=== PATIENT | male | born 1970 | race Two or more races ===

== ENCOUNTER 2017-02-19 14:01 | Emergency (ER) | payer MEDICAID ==
[~2017-02-19] VITALS: Ht 182.9 cm; Wt 90.7 kg
[2017-02-19 14:57] VITALS: BP 127/55
[2017-02-19] MEDS ORDERED: methylPREDNISolone SOD SUCC 125 MG/2 ML VL IV ONE (15:30)
== END 2017-02-19 15:57 | disposition home or self-care (01) ==
LOC: EDBD 14:01 → ER 14:01
DX: L25.8 Unspecified contact dermatitis due to other agents (principal); T39.395A Adverse effect of other nonsteroidal anti-inflammatory drugs [NSAID], initial encounter; Y92.89 Other specified places as the place of occurrence of the external cause
CPT/HCPCS: 96374; 99284; J2930

== ENCOUNTER 2017-10-05 04:14 | Emergency (ER) | payer MEDICAID, OTHER ==
[~2017-10-05] VITALS: Ht 180.3 cm; Wt 135.2 kg
[2017-10-05 10:09] VITALS: BP 125/77
[2017-10-05] MEDS ORDERED: KETOROLAC TROMETH 60MG/2ML VIAL IM ONE (11:00)
== END 2017-10-05 11:06 | disposition home or self-care (01) ==
LOC: ER 04:27
DX: S16.1XXA Strain of muscle, fascia and tendon at neck level, initial encounter (principal); F17.210 Nicotine dependence, cigarettes, uncomplicated; Z88.8 Allergy status to other drugs, medicaments and biological substances; X58.XXXA Exposure to other specified factors, initial encounter; Y93.89 Activity, other specified; Y99.8 Other external cause status; Y92.89 Other specified places as the place of occurrence of the external cause
CPT/HCPCS: 72125

== ENCOUNTER 2021-08-08 18:14 | Emergency (ER) | payer MEDICAID ==
[~2021-08-08] VITALS: Ht 182.9 cm; Wt 90.3 kg
[2021-08-08 18:22] VITALS: BP 115/74
[2021-08-08] MEDS ORDERED: FLUORESCEIN SOD OPTH TEST STRIP ONE (21:16)
[2021-08-08] MEDS ORDERED: TETRACAINE HCL 0.5% OPTH(EYE) SOLN 4ML ONE (21:16)
== END 2021-08-09 02:14 | disposition left against medical advice (07) ==
LOC: ER 18:14
DX: S05.8X1A Other injuries of right eye and orbit, initial encounter (principal); T15.01XA Foreign body in cornea, right eye, initial encounter; E78.5 Hyperlipidemia, unspecified; F17.210 Nicotine dependence, cigarettes, uncomplicated; Z88.8 Allergy status to other drugs, medicaments and biological substances; X58.XXXA Exposure to other specified factors, initial encounter; Y93.89 Activity, other specified; Y92.89 Other specified places as the place of occurrence of the external cause; Y99.8 Other external cause status

== ENCOUNTER 2022-10-25 09:32 | Inpatient (IN) | payer MEDICAID ==
[~2022-10-25] VITALS: Ht 182.9 cm; Wt 92.7 kg
[2022-10-25] MEDS ORDERED: KETOROLAC TROMETH 30 MG/ML 1ML VIAL IV ONE (10:00)
[2022-10-25] MEDS ORDERED: SODIUM CHLORIDE 0.9% 1,000 ML IV ONE ×2 (10:00)
[2022-10-25 10:24] LABS: Basophils # (auto) 0.1 10 ^3/uL (0-0.2); Basophils % (auto) 0.6 % (0.0-2.0); Eosinophils # (auto) 0.2 10 ^3/uL (0-0.8); Eosinophils % (auto) 2.3 % (0.0-7.0); Hematocrit 40.2 % (41.0-53.0); Hemoglobin 13.6 g/dL (13.5-17.5); Lymphocytes # (auto) 2.1 10 ^3/uL (0.4-5.4); Mean Corpuscular Hemoglobin 30.5 pg (28.0-32.0); Mean Corpuscular Hgb Conc. 33.8 g/dL (32.0-36.0); Mean Corpuscular Volume 90.1 fL (80.0-100.0); Monocytes # (auto) 0.7 10 ^3/uL (0-1.3); Monocytes % (auto) 7.8 % (0.0-12.0); Neutrophils # (auto) 6.4 10 ^3/uL (1.6-8.6); Neutrophils % (auto) 67.3 % (37.0-80.0); Nucleated Red Blood Cells % 0.1 %; Red Blood Cells 4.46 10^6/uL (4.5-5.90); Red Cell Distribution Width 13.4 % (11.8-14.3); White Blood Cell 9.5 10^3/uL (4.4-10.8)
[2022-10-25 10:58] LABS: Alanine Aminotransferase 28 U/L (7-40); Albumin 4.4 g/dL (3.2-4.8); Alkaline Phosphatase 66 U/L (46-116); Anion Gap 6.2 (5-15); Aspartate Aminotransferase 11 U/L (13-40); BUN/Creatinine Ratio 8.8 (10.0-20.0); Bilirubin, Total 0.6 mg/dL (0.2-1.0); Blood Urea Nitrogen 13 mg/dL (9-23); Calcium 8.9 mg/dL (8.5-10.1); Carbon Dioxide 23.8 mmol/L (20-30); Chloride 107 mmol/L (98-107); Glucose 211 mg/dL (74-106); Lipase 54 U/L (12-53); Potassium 4.2 mmol/L (3.5-5.1); Sodium 137 mmol/L (136-145); Total Protein 6.9 g/dL (5.7-8.2)
[2022-10-25 12:39] LABS: Urine Bacteria NONE SEEN /hpf (None Seen); Urine Blood 3+ /uL (Negative); Urine Clarity HAZY (Clear); Urine Color Brown (Yellow); Urine Mucus FEW (None Seen); Urine Protein, UAD 1+ (Negative); Urine Specific Gravity 1.025 (1.001-1.035); Urine WBC 83 /hpf (0 - 3)
[2022-10-25] MEDS ORDERED: ACETAMINOPHEN 325 MG TAB PO PRN (13:00)
[2022-10-25] MEDS ORDERED: KETOROLAC TROMETH 30 MG/ML 1ML VIAL IV PRN ×2 (13:00→14:45)
[2022-10-25] MEDS ORDERED: cefTRIAXone 1GM/50ML D5W 50 ML IV ONE (13:00)
[2022-10-25] MEDS ORDERED: HYDROcodone-ACET 5/325MG TAB PO PRN (13:00)
[2022-10-25] MEDS ORDERED: ATOR10TA52 PO (13:18)
[2022-10-25] MEDS ORDERED: SERT-206 PO (13:18)
[2022-10-25] MEDS ORDERED: IBUP1TAB5 PO (13:18)
[2022-10-25] MEDS ORDERED: AMOX500C2 PO (13:18)
[2022-10-25] MEDS ORDERED: FLUO20CA90 PO (13:18)
[2022-10-25] MEDS ORDERED: SERT-160 PO (13:18)
[2022-10-25] MEDS ORDERED: IBUPROFEN 600 MG TAB PO PRN (13:30)
[2022-10-25] MEDS: SODIUM CHLORIDE 0.9% 1,000 ML IV SCH ×2 (13:59→23:04)
[2022-10-25 23:02] VITALS: BP 106/63; PULSE 64; RESP 18; TEMP 97.9; O2SAT 98
[2022-10-26 05:00] VITALS: BP 104/65; PULSE 63; RESP 18; TEMP 97.7; O2SAT 95
[2022-10-26 06:10] LABS: Alanine Aminotransferase 25 U/L (7-40); Albumin 3.9 g/dL (3.2-4.8); Alkaline Phosphatase 64 U/L (46-116); Anion Gap 4.1 (5-15); Aspartate Aminotransferase 11 U/L (13-40); Basophils # (auto) 0 10 ^3/uL (0-0.2); Basophils % (auto) 0.6 % (0.0-2.0); Bilirubin, Total 0.4 mg/dL (0.2-1.0); Blood Urea Nitrogen 12 mg/dL (9-23); Calcium 8.4 mg/dL (8.7-10.4); Carbon Dioxide 25.9 mmol/L (20-30); Chloride 111 mmol/L (98-107); Eosinophils # (auto) 0.3 10 ^3/uL (0-0.8); Eosinophils % (auto) 4.5 % (0.0-7.0); Glucose 143 mg/dL (74-106); Hemoglobin 12.3 g/dL (13.5-17.5); Lymphocytes # (auto) 2.2 10 ^3/uL (0.4-5.4); Lymphocytes % (auto) 31.6 % (10.0-50.0); Mean Corpuscular Hemoglobin 30.9 pg (28.0-32.0); Mean Corpuscular Hgb Conc. 34.3 g/dL (32.0-36.0); Mean Corpuscular Volume 90.3 fL (80.0-100.0); Monocytes # (auto) 0.7 10 ^3/uL (0-1.3); Monocytes % (auto) 9.5 % (0.0-12.0); Neutrophils # (auto) 3.7 10 ^3/uL (1.6-8.6); Neutrophils % (auto) 53.8 % (37.0-80.0); Nucleated Red Blood Cells % 0.1 %; Potassium 4.2 mmol/L (3.5-5.1); Red Blood Cells 3.99 10^6/uL (4.5-5.90); Red Cell Distribution Width 13.5 % (11.8-14.3); Sodium 141 mmol/L (136-145); White Blood Cell 6.9 10^3/uL (4.4-10.8)
[2022-10-26 08:00] VITALS: BP 104/70; PULSE 50; PULSE 52; RESP 18; RESP 20; TEMP 97.7; O2SAT 97
[2022-10-26 08:17] LABS: BUN/Creatinine Ratio 9.4 (10.0-20.0)
[2022-10-26] MEDS ORDERED: cefTRIAXone 1GM/50ML D5W 50 ML IV SCH (09:00)
[2022-10-26] MEDS: SODIUM CHLORIDE 0.9% 1,000 ML IV SCH (09:23)
[2022-10-26 12:00] VITALS: BP 105/68; PULSE 61; RESP 21; TEMP 97.6; O2SAT 96
== END 2022-10-26 15:16 | disposition left against medical advice (07) | DRG 465 ==
LOC: ER 09:32 → OVERFLOW 13:00 → EAST 21:34
PROVIDERS: ADMIT Nurse Practitioner Family; ATTEND Internal Medicine
DX: N20.2 Calculus of kidney with calculus of ureter (principal); E78.5 Hyperlipidemia, unspecified; N39.0 Urinary tract infection, site not specified; N13.9 Obstructive and reflux uropathy, unspecified; F17.210 Nicotine dependence, cigarettes, uncomplicated; R73.9 Hyperglycemia, unspecified; Z53.29 Procedure and treatment not carried out because of patient's decision for other reasons; Z87.442 Personal history of urinary calculi; Z88.8 Allergy status to other drugs, medicaments and biological substances; I10 Essential (primary) hypertension
CPT/HCPCS: 36415; 74176; 80053; 81001; 83036; 83690; 85025; 87086; 93005; 96361; 96365; 96375; G0378; J0696; J1885